=== PATIENT | female | born 1985 | race Caucasian/White ===

== ENCOUNTER 2019-02-14 10:20 | Emergency (ER) | payer OTHER ==
[~2019-02-14] VITALS: Ht 175.3 cm; Wt 70.8 kg
[2019-02-14 10:37] VITALS: BP_SYST 133
--- NOTE | 2019-02-14 10:44 | NUR ---
Patient to ER bed 2 to gown for evaluation. Side rails up. Report given to Malachi TREVIÑO.
[2019-02-14] MEDS ORDERED: MAG HYDROX/AL HYDROX/SIMETH 30 ML, DICYCLOMINE HCL 20 MG, LIDOCAINE VISCOUS 2% 15ML (PO... PO ONE ×3 (11:15)
--- NOTE | 2019-02-14 11:18 | NUR ---
Pt [id number] presents to ED c/o 11/19 epigastric pain x ~ 8 hours. Reports nausea, but juni vomiting and diarrhea. Denies dysuria/back pain/ chest pain/ SOB. No other injuries/complaints per pt/noted. Will continue to monitor.
--- NOTE | 2019-02-14 11:20 | NUR ---
ER at bedside examining patient.
--- NOTE | 2019-02-14 11:45 | NUR ---
Pt tolerated medication well.
--- NOTE | 2019-02-14 12:00 | NUR ---
pt reports pain resolved
--- NOTE | 2019-02-14 12:30 | NUR ---
Patient given written and verbal discharge instructions and verbalizes understanding. ER MD discussed with patient the results and treatment provided. Patient in stable condition. ID arm band removed. Rx of pepcid,mylanta given. Patient educated on pain management and to follow up with PMD. Pain Scale 0 Opportunity for questions provided and answered. Medication side effect fact sheet provided.
[2019-02-14 14:30] VITALS: BP_SYST 128
== END 2019-02-14 14:30 | disposition home or self-care (01) ==
LOC: SED 10:20
DX: R10.13 Epigastric pain (principal); R03.0 Elevated blood-pressure reading, without diagnosis of hypertension; Z90.49 Acquired absence of other specified parts of digestive tract
CPT/HCPCS: 81002; 81025; 99283; J2001